=== PATIENT | male | born 1980 | race Hispanic/Latino ===

== ENCOUNTER 2023-04-29 14:54 | Emergency (ER) | payer SELFPAY ==
[2023-04-29 14:56] VITALS: BP 140/70; PULSE 71; RESP 20; TEMP 36.5; O2SAT 98
[2023-04-29] MEDS: LIDOCAINE HCL 1% LOCAL INJ 10 ML VIAL INFILTRATE (18:21)
[2023-04-29] MEDS: TETANUS,DIPHTHERIA,AC PERTUSSIS ADULT (0.5 ML) BOOSTRIX IM (18:25)
--- NOTE | 2023-04-29 18:28 | ED.WOUNDLAC ---
HPI - Wound/Laceration General Chief Complaint: Wound/Laceration Stated Complaint: arm injury Time Seen by Provider: 04/29/23 17:48 History of Present Illness HPI narrative: 42-year-old male presenting to the ED for evaluation of an injury to his right arm at work. Patient states he cut his arm on a piece a sheet metal. Patient was unsure if his tetanus was up-to-date. Related Data Allergies Allergy/AdvReac Type Severity Reaction Status Date / Time No Known Allergies Allergy Verified 04/29/23 18:21 Review of Systems Review of Systems: All systems reviewed & are unremarkable except as noted in HPI and below Exam Narrative: APPEARANCE: Well appearing, no pain, no distress, well-nourished. HEAD: normocephalic, atraumatic. EYES: PERRLA/EOMI, conjunctivae clear. NOSE: Normal no drainage NECK: Supple. No adenopathy, no masses. RESPIRATORY: Airway patent, respirations nonlabored. Clear to auscultation bilaterally, no rales, rhonchi, wheezing. CARDIOVASCULAR: Regular rate and rhythm without murmurs rubs or gallops. ABDOMINAL: Soft, nontender, nondistended, normal bowel sounds MUSCULOSKELETAL: Moves all extremities. Strength/ROM intact, No edema, No calf tenderness. NEURO: Alert. Cranial nerves II through XII intact. Good gait. Good coordination SKIN: 4 cm laceration to right forearm Course Course Emergency Course: Laceration was repaired and patient was discharged home with outpatient follow-up Vital Signs Vital signs: Vital Signs Temperature 97.7 F 04/29/23 14:56 Pulse Rate 71 04/29/23 14:56 Respiratory Rate 20 04/29/23 14:56 Blood Pressure 140/70 04/29/23 14:56 Pulse Oximetry 98 04/29/23 14:56 Oxygen Delivery Room Air 04/29/23 14:56 Temperature 97.7 F 04/29/23 14:56 Pulse Rate 71 04/29/23 14:56 Respiratory Rate 20 04/29/23 14:56 Blood Pressure 140/70 04/29/23 14:56 Pulse Oximetry 98 04/29/23 14:56 Oxygen Delivery Room Air 04/29/23 14:56 Procedures Laceration Laceration 1: Site: upper extremity Side (If applicable): right Size (cm): 4 Description: linear Depth: simple, single layer Local Anesthetic: lidocaine 1% Amount of anesthesia used (mL): 4 Pre-repair: wound explored, irrigated and irrigated extensively ====== Skin Level ====== Skin layer closed with: nylon Size (cm): 4-0 Number of sutures: 6 Technique: simple, interrupted ====== Subcutaneous Layer ====== ====== Muscle Layer ====== ====== Tendon Layer ====== MDM - Wound/Laceration MDM Narrative Medical decision making narrative: 42-year-old male presented to the emergency department for evaluation of a laceration to the right forearm. Laceration was repaired Differential Diagnosis Differential diagnosis: Likely laceration, abrasion and avulsion of skin Discharge Plan Discharge Clinical Impression: Laceration Patient Disposition: Home, Self-Care Condition: Stable Instructions: Antibiotic Form, Care For Your Stitches (ED), Laceration (ED) Additional Instructions: Sutures will need to be removed in 7-10 days. Wound care as directed. Have close follow-up with your primary care physician. If you have any worsening symptoms then please call or return to the emergency department. Follow-up/Referrals: PHYSICIAN,RESOURCING CONSULTANT [Non-Staff] -
== END 2023-04-29 18:47 | disposition home or self-care (01) ==
PROVIDERS: Emergency Provider Emergency Medicine
DX: S51.811A Laceration without foreign body of right forearm, initial encounter (principal); Z23 Encounter for immunization; W26.8XXA Contact with other sharp object(s), not elsewhere classified, initial encounter
CPT/HCPCS: 12002; 90471; 90715; 99282

== ENCOUNTER 2023-05-09 08:01 | Emergency (ER) | payer SELFPAY ==
[2023-05-09 08:02] VITALS: BP 141/62; PULSE 71; RESP 18; TEMP 36.6; O2SAT 98
--- NOTE | 2023-05-09 08:46 | ED.GENADULT ---
HPI - General Adult General Chief complaint: Wound/Laceration Stated complaint: sutures removed Time Seen by Provider: 05/09/23 08:40 History of Present Illness HPI narrative: Patient is a 42-year-old gentleman who presents emergency department chief complaint of needs sutures removed. Patient had laceration to his right upper extremity on the and has had no complaints since then. The patient reports the wound is healing nicely denies fever denies redness denies drainage. Related Data Allergies Allergy/AdvReac Type Severity Reaction Status Date / Time No Known Allergies Allergy Verified 05/09/23 08:01 Review of Systems Review of Systems: A 10 system review of systems was completed on the patient and is negative except for what is stated in the HPI. Nursing and ancillary documentation was reviewed. Exam Narrative: GENERAL: Well-appearing, well-nourished, and in no acute distress. HEAD: Normocephalic, atraumatic. EYES: PERRLA and EOMI. ENT: Nares clear, no rhinorrhea or epistaxis. Mucous membranes moist. NECK: Supple. CHEST: Clear to auscultation. No respiratory distress. HEART: Regular rate and rhythm. No murmur heard. Normal peripheral pulses. ABDOMEN: Soft, nontender, nondistended, normal active bowel sounds. EXTREMITIES: Normal range of motion. No edema. SKIN: Warm, dry, no rash. Well-healed approximated laceration to the right forearm sutures intact NEURO: No focal deficits. Alert and oriented x3. PSYCH: Normal mood and affect. Course Vital Signs Vital signs: Vital Signs Temperature 36.6 C 05/09/23 08:02 Pulse Rate 71 05/09/23 08:02 Respiratory Rate 18 05/09/23 08:02 Blood Pressure 141/62 H 05/09/23 08:02 Pulse Oximetry 98 05/09/23 08:02 Oxygen Delivery Room Air 05/09/23 08:02 Temperature 36.6 C 05/09/23 08:02 Pulse Rate 71 05/09/23 08:02 Respiratory Rate 18 05/09/23 08:02 Blood Pressure 141/62 H 05/09/23 08:02 Pulse Oximetry 98 05/09/23 08:02 Oxygen Delivery Room Air 05/09/23 08:02 Procedures Other Procedure Procedure 1: Other Procedure: Suture removal After verbal consent with the patient 6 sutures were removed without difficulty using scissors the wound remains intact and well approximated. Medical Decision Making MDM Narrative Medical decision making narrative: Differential diagnosis includes heel wound, wound infection, The laceration appears to be well approximated well healed and at this point sutures can be removed. Patient was discharged home with wound care instructions Vital Signs Vital Signs: Vital Signs Temperature 36.6 C 05/09/23 08:02 Pulse Rate 71 05/09/23 08:02 Respiratory Rate 18 05/09/23 08:02 Blood Pressure 141/62 H 05/09/23 08:02 Pulse Oximetry 98 05/09/23 08:02 Oxygen Delivery Room Air 05/09/23 08:02 Temperature 36.6 C 05/09/23 08:02 Pulse Rate 71 05/09/23 08:02 Respiratory Rate 18 05/09/23 08:02 Blood Pressure 141/62 H 05/09/23 08:02 Pulse Oximetry 98 05/09/23 08:02 Oxygen Delivery Room Air 05/09/23 08:02 Discharge Plan Discharge Clinical Impression: Encounter for removal of sutures Patient Disposition: Home, Self-Care Condition: Stable Instructions: Antibiotic Form, Stitches Removal (ED) Follow-up/Referrals: UNKNOWN,DOCTOR [Primary Care Provider] - Time of Disposition: 08:49
[2023-05-09 08:51] VITALS: BP 146/80; PULSE 80; RESP 16; TEMP 36.7; O2SAT 100
== END 2023-05-09 08:56 | disposition home or self-care (01) ==
LOC: ANHED 08:50
PROVIDERS: Emergency Provider Emergency Medicine
DX: S51.811D Laceration without foreign body of right forearm, subsequent encounter (principal); X58.XXXD Exposure to other specified factors, subsequent encounter
CPT/HCPCS: 15853; 99281